=== PATIENT | female | born 1945 | race Caucasian/White ===

== ENCOUNTER → 2016-11-04 16:52 | Outpatient (CLI) | payer MEDICARE, OTHER ==
[2013-01-15 07:53] VITALS: BMI 31.2
[~2016-11-04 16:52] MED LIST: ALTACE5 MG PO; ARMOUR THYROID90 MG PO; ARTHROTEC EC 71 EACH PO; CRESTOR5 MG PO; DHEA25 M1 PO; ESTRADERM 0.10.1 MG TD; FIRST-TESTOSTER60 G1 TP; MIRALAX17 GM PO; PROMETRIUM200 MG PO; VITAMIN D2000 UNIT PO; ZIAC 10/6.25 MG1 TAB PO; ZYLOPRIM100 MG PO; [UNRECOGNIZED DRUG - OTHER]
== END | disposition home or self-care (01) ==
LOC: D.MAMMO 10-19 09:30
DX: Z12.31 Encounter for screening mammogram for malignant neoplasm of breast (principal)

== ENCOUNTER → 2018-05-19 07:35 | Outpatient (CLI) | payer MEDICARE, BC ==
[2013-01-15 07:53] VITALS: BMI 31.2
--- NOTE | ~2018-05-19 | HEMODYNAMI ---
PATIENT:SUNITHA VERGARA MEDICAL RECORD: [id number] : 49 LOCATION:[facility] ADMISSION DATE: 05/19/18 Generatedon:05/19/20188:33 Patient name: SUNITHA VERGARA Patient #: [id number] SSN: DO B: 1945 Date of study: 05/19/2018 Page: Of Hemodynamic Procedure Report Patient Data Patient Demographics Procedure consent was obtained First Name: SUNITHA Gender: Female Last Name: URSULA : 1945 Middle Initial: A Age: 73 year(s) Patient #: [id number] Race: Unknown Additional ID: [id number] Contact details [address]: [address] [place] [address] [address] State: [place] City: [place] Zip code: [address] Past Medical History Allergies: No known allergies Admission Admission Data Admission Date: 05/19/2018 Admission Time: 7:35 Procedure Procedure Types Cath Procedure Peripheral Cath Diagnostic Procedure Miscellaneous Aspiration/Injection (Joint) Procedure Description Procedure Date Procedure Date: 05/19/2018 Procedure Start Time: 8:20 Procedure Staff Name Function Celio Atkinson MD Performing Physician Shad Vieyra RT Monitor Nadine You RN Nurse Procedure Data Cath Procedure Fluoroscopy Diagnostic fluoroscopy Total fluoroscopy Time: 0.7 time: 0.7 min min Diagnostic fluoroscopy Total fluoroscopy dose: 14 dose: 14 mGy mGy Hemodynamics Rest Pre Cath Intra NCS Post Cath Procedure Log Time Note 8:03:46 Shad Vieyra RT (R) (CV) sent for patient. Start room use. 8:04:02 Patient received from Outpatients to IR Alert and oriented. Tansferred to table in Prone position. 8:04:04 Correct patient and procedure confirmed by team. 8:04:06 Signed procedure consent form obtained from patient. 8:04:08 ECG and BP/O2 sat monitors applied to patient. 8:04:09 Full Disclosure recording started 8:04:10 Pre-procedure instructions explained to patient. 8:04:11 Pre-op teaching completed and patient verbalized understanding. 8:04:13 Family in waiting room. 8:04:20 Patient allergic to No known allergies 8:04:25 Is patient on blood thinner?No 8:04:37 Right Lumbar was prepped with betadine and draped in sterile fashion. 8:15:33 Physician arrived 8:15:33 --------ALL STOP TIME OUT------ 8:15:34 Final Timeout: patient, procedure, and site verified with staff and physician. All members of the team are in agreement. 8:15:38 Lumbar site verified by team. 8:15:54 Sedation plan: Local Anesthetic Medication:Lidocaine 8:20:01 Procedure started. 8:20:08 Local anesthetic to Lumbar area with Lidocaine 1% by Celio Atkinson MD.INITIAL ACCESS ONLY 8:20:12 SAFE-T PLUS MYELOGRAM TRAY opened to sterile field. 8:31:59 Procedure ended.(Physican Out) 8:32:26 bandaide applied site stable pt sent home 8:32:46 Fluoroscopy time 00.70 minutes. 8:32:49 Fluoroscopy dose: 14 mGy 8:32:49 Flurop Dose total: 14 Device Usage Item Name Manufacture Quantity Catalog Hospital Part Current Minimal Lot# / Number Charge Number Stock Stock Serial# Code SAFE-T [employer] 1 [id number] PLUS MYELOGRAM TRAY Signature Audit Kincaid Stage Time Signature Unsigned Intra-Procedure 05/19/2018 Shad 8:33:28 AM Jarrell RT (R) (CV) Signatures Monitor : Shad Signature : Jarrell RT Date : Time : [facility] [address] [facility] [place] [address]
== END | disposition home or self-care (01) ==
LOC: D.RAD 07:35
PROVIDERS: ATTEND Orthopaedic Surgery
DX: M53.3 Sacrococcygeal disorders, not elsewhere classified (principal)

== ENCOUNTER 2018-09-13 09:00 | Outpatient (CLI) | payer MEDICARE, BC ==
[2013-01-15 07:53] VITALS: BMI 31.2
== END 2018-09-13 10:00 | disposition home or self-care (01) ==
LOC: D.MAMMO 09:00
PROVIDERS: ATTEND Family Medicine
DX: Z12.31 Encounter for screening mammogram for malignant neoplasm of breast (principal)

== ENCOUNTER 2019-08-27 15:52 | Inpatient (IN) | payer MEDICARE, BC ==
[~2019-08-27] VITALS: Ht 182.9 cm; Wt 99.8 kg
[~2019-08-27 15:52] MED LIST changes: +BISOPROLOL-HCT1 EACH PO; -ZIAC 10/6.25 MG1 TAB PO
[2019-08-29] MEDS ORDERED: FEXMID7.5 MG PO (11:02)
[2019-08-29] MEDS ORDERED: CELEXA20 MG PO (11:02)
[2019-08-29] MEDS ORDERED: HYDROCODON-ACE1 EAC2 PO (11:03)
[2019-08-29] MEDS ORDERED: DONEPEZIL HCL5 MG PO (11:03)
[2019-08-29] MEDS ORDERED: CENTRUM SILVER1 EAC3 PO (11:04)
[2019-08-29] MEDS ORDERED: CALCIUM 250+D T1 TAB PO (11:04)
[2019-08-29] MEDS ORDERED: GLUCOSAMINE HC500 MG PO (11:04)
[2019-08-29] MEDS ORDERED: ALIGN4 MG PO (11:06)
[2019-08-29] MEDS ORDERED: METAMUCIL PO (11:06)
--- NOTE | 2019-08-29 11:34 | NUR ---
HR- 67, POX- 97%, RR- 16, BP RA- 186/84 PT STATED BP WASN'T NORMAL FOR HER BUT HAS BEEN STRESSED WITH WORK AND HAVING PAIN IN KNEE. 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 ENCOURAGED TO CHECK AT HOME TONIGHT AND DAILY TIL DOWN TO NORMAL RANGE FOR HER.
[2019-08-29 12:13] LABS: HEMOGLOBIN 15.2 g/dL (12-16); LYMPHOCYTES 30.6 % (15-50); MCH 31.8 pg (26.0-34.0); MCHC 33.8 g/dL (31.0-37.0); MCV 94.1 fL (80.0-100.0); MEAN PLATELET VOLUME 9.7 fL (7.4-10.4); NEUTROPHILS 60.4 % (40-80); RBC 4.78 10x6/uL (4.00-5.40)
[2019-08-29 12:14] LABS: BILIRUBIN NEGATIVE (NEGATIVE); GLUCOSE NEGATIVE (NEGATIVE); KETONE NEGATIVE (NEGATIVE); NITRITE NEGATIVE (NEGATIVE); PLATELET COUNT 308 10x3/uL (130-400); UROBILINOGEN NORMAL (NORMAL)
[2019-08-29 12:20] LABS: APTT 24.3 SECONDS (22.8-39.4); INR 0.89 (0.85-1.17)
[2019-08-29 12:24] LABS: ANION GAP 9.2 mmol/L (8-16); CALCIUM 9.2 mg/dL (8.5-10.1); CARBON DIOXIDE 33.6 mmol/L (21.0-32.0); CREATININE - SERUM 1.1 mg/dL (0.6-1.3); POTASSIUM - SERUM 3.8 mmol/L (3.5-5.1)
[2019-09-17 09:49] LABS: BASOPHILS 0.5 % (0-2); EOSINOPHILS 2.9 % (0-7); HEMATOCRIT 44.4 % (36.0-48.0); HEMOGLOBIN 14.9 g/dL (12-16); IMMATURE GRANULOCYTES 0.3 % (0-5); MCH 32.4 pg (26.0-34.0); MCHC 33.6 g/dL (31.0-37.0); MCV 96.5 fL (80.0-100.0); MONOCYTES 11.6 % (2-11); NEUTROPHILS 52.7 % (40-80); RDW 12.8 % (11.5-14.5); WBC 6.6 10x3/uL (4.8-10.8)
[2019-09-17 09:50] LABS: PLATELET COUNT 245 10x3/uL (130-400)
[2019-09-17 10:04] LABS: ANION GAP 9.2 mmol/L (8-16); APTT 25.4 SECONDS (22.8-39.4); CALCIUM 9.1 mg/dL (8.5-10.1); INR 0.89 (0.85-1.17); POTASSIUM - SERUM 5.2 mmol/L (3.5-5.1)
[2019-09-17 10:07] LABS: NITRITE NEGATIVE (NEGATIVE)
[2019-09-17 10:08] LABS: BILIRUBIN NEGATIVE (NEGATIVE); GLUCOSE NEGATIVE (NEGATIVE); KETONE NEGATIVE (NEGATIVE); UROBILINOGEN NORMAL (NORMAL)
[2019-09-18] VITALS (10 sets, daily range): BP systolic 101–162; BP diastolic 59–95; BMI 29.9
--- NOTE | 2019-09-18 11:00 | NUR ---
CAUTERY PAD PLACED ON RIGHT FLANK. PLASMA BLADE USED ON SETTING 6/8. AQAUMANTIS USED ON SETTING 170. CAUTERY PAD LOT #[id number] EXP. 09/26/2020.
--- NOTE | 2019-09-18 13:39 | NUR ---
RECEIVED TO ROOM 1211 VIA BED FROM PACU. A/O X3. SOMEWHAT LETHARGIC AT THIS TIME. AT BEDSIDE. DRESSING TO RIGHT KNEE IS DRY AND INTACT. DENIES NEEDS.
--- NOTE | 2019-09-18 15:25 | NUR ---
RESTING QUIETLY WITH EYES CLOSED. AT BEDSIDE. NO NEEDS NOTED. VSS.
--- NOTE | 2019-09-18 16:30 | NUR ---
CONTINUES WITH EYES CLOSED. ROUSES TO VERBAL STIMULATION. DENIES NEEDS. AT BEDSIDE.
--- NOTE | 2019-09-18 17:44 | NUR ---
ATE ONLY A FEW BITES OF SPAGETTI BUT ALL OF THE REST. DENIES NEEDS. CPM PLACED AT 1730. NO CHANGES NOTED.
--- NOTE | 2019-09-18 19:45 | NUR ---
VS TAKEN AND CHARTED. PT IS ON THE CPM MACHINE AT THIS TIME LAYING ON HER BACK. SHE HAS NO C/O OR NEEDS AT THIS TIME. WATER WAS DELIVERED TO THE PT AND HER .
--- NOTE | 2019-09-18 20:30 | NUR ---
PT WAS TAKEN OFF THE CPM MACHINE SHE STILL DOES NOT HAVE ANY PAIN.
--- NOTE | 2019-09-18 21:00 | NUR ---
PT GOT UP TO GO TO THE BR USING A WALKER AND TWO NURSES TO ASSIST. SHE DID VERY WELL GETTING UP. SHE VOIDED QS. SHE GOT DIZZY WHILE ON THE TOILET. SHE STATES SHE NEEDED TO GET BACK IN BED. SHE USED THE WALKER TO GET BACK TO BED WITH TWO ASSIST AND FEELS MUCH BETTER. SCD'S ON NOW. PT IS USING HER IS AND CAN GET THE METER TO 2000. THIS WAS HER FISRT TIME OOOB SINCE HER SURGERY THIS MORNING.
--- NOTE | 2019-09-18 21:15 | NUR ---
ICE PACK TAKEN TO PT FOR HER KNEE.
--- NOTE | 2019-09-18 21:48 | NUR ---
TELEMENTRY PLACED ORDERED 84 SR
--- NOTE | 2019-09-19 | NUR ---
VS TAKEN AND CHARTED. NO C/O AT THIS TIME.
--- NOTE | 2019-09-19 03:12 | NUR ---
PT C/O OF PAIN IN HER RIGHT KNEE AND HEEL. PO PAIN MED, OXY 10, AND VISTERAL GIVEN PO. SHE REQUESTED A COKE AND LIP MOISTURIZER AND BOTH WERE TAKEN TO HER. WE TURNED OFF THE TV AND TURNED OUT THE LIGHTS SO SHE CAN REALLY TRY TO SLEEP. PT GOT UP TO VOID BEFORE SHE ASKED FOR PAIN MEDS. SHE DOES VERY WELL WITH THE WALKER TO AND FROM THE BATHROOM WITH NURSE JUST WALKING BEHIND HER. SHE STATED ONCE SHE WAS ON THE TOILET THAT SHE WAS DIZZY. SHE GOT UP AND AMBULATED WITH WALKER BACK TO BED WITHOUT INCIDENCE.
[2019-09-19 03:40] VITALS: BP 129/58
--- NOTE | 2019-09-19 03:40 | NUR ---
VS TAKEN NO NEEDS OR C/O AT THIS TIME.
[2019-09-19 07:07] LABS: BASOPHILS 0.1 % (0-2); EOSINOPHILS 0 % (0-7); IMMATURE GRANULOCYTES 0.3 % (0-5); LYMPHOCYTES 12.3 % (15-50); MCH 31.1 pg (26.0-34.0); MCHC 32.4 g/dL (31.0-37.0); MCV 95.9 fL (80.0-100.0); MEAN PLATELET VOLUME 10.6 fL (7.4-10.4); MONOCYTES 12.6 % (2-11); NEUTROPHILS 74.7 % (40-80); RDW 12.8 % (11.5-14.5)
[2019-09-19 07:09] LABS: HEMATOCRIT 35.2 % (36.0-48.0); HEMOGLOBIN 11.4 g/dL (12-16); PLATELET COUNT 167 10x3/uL (130-400); RBC 3.67 10x6/uL (4.00-5.40); WBC 11.5 10x3/uL (4.8-10.8)
[2019-09-19 07:27] LABS: ANION GAP 11.4 mmol/L (8-16); CALCIUM 8.2 mg/dL (8.5-10.1); CARBON DIOXIDE 28.7 mmol/L (21.0-32.0); MAGNESIUM - SERUM 1.8 mg/dL (1.8-2.4)
[2019-09-19 07:28] LABS: POTASSIUM - SERUM 4.1 mmol/L (3.5-5.1)
--- NOTE | 2019-09-19 08:18 | NUR ---
PT ALERT X 4. BREATH SOUNDS CLEAR BILAT. IV TO LEFT FOREARM, PATENT, DRESSING CDI. NICHOLE TO RIGHT LEG CDI, CPM REMOVED AT 0745. PT REPORTING PAIN OF 7/10, MEDICATED PER ORDERS, WILL CONTINUE TO MONITOR. AMBULATED TO BATHROOM AND BACK TO BED WITH NO COMPLICATIONS. SCD'S IN USE. BED LOW, CALL LIGHT IN REACH. NO OTHER NEEDS AT THIS TIME.
[2019-09-19 08:44] VITALS: BP 161/67
[2019-09-19 12:23] VITALS: BP 142/63
--- NOTE | 2019-09-19 13:06 | OP ---
PATIENT NAME: SUNITHA VERGARA MEDICAL RECORD: [id number] :49 [facility] DATE:09/18/19 SURGEON: MARLON AGUILAR, DATE OF OPERATION: 09/18/2019 PROCEDURE PERFORMED: Right total knee arthroplasty. PREOPERATIVE DIAGNOSIS: Right knee osteoarthritis. POSTOPERATIVE DIAGNOSIS: Right knee osteoarthritis. INDICATIONS: Ms. Vergara is a 74-year-old female who has had knee pain for quite some time. She has been treated with injections and physical therapy to no avail. She is tired of dealing with pain and wants something done surgically. This is affecting her activities of daily living. She is aware of the risks and benefits of the procedure including infection, bleeding, need for further surgery, implant failure, fracture, blood clots, and even and she signed the consent as well as damage to nerves and vessels in the area. SURGEON: Marlon Aguilar DO ANESTHESIA: Master Ceja, certified surgical child welfare assistant. DESCRIPTION OF PROCEDURE: The patient was taken to the operative suite, laid in supine position, given general anesthetic, and LMA was placed. She was also given a block by anesthesia in preoperative area. The patient was given 2 g of Ancef, 80 mg of gentamicin and no TXA as she had a blood clot history. The right lower extremity was then prepped and draped in sterile fashion. A time-out was performed and everyone was in agreeance with the correct side, site, patient, and procedure. We marked out the incision on the anterior knee, covered in Ioban, and made an incision down through the skin to the capsule with 10 blade scalpel. We used fresh 10 blade. I did a medial parapatellar approach. As soon as I did that, we coagulated the vessels with Aquamantys going through and then everted the patella. Upon doing that, there were 2 large loose bodies that popped out in the anterior knee, round in nature. These were sent to the lab also with the bone that was sent at the end of the case. I then removed a part of the fat pad and milled down the patella for the implant, then entered into the femoral canal after taking out the ACL with a drill. I then cut the distal femur. I then cut the proximal tibia both off guides. I then removed the menisci and cut more proximal tibia to fit the 10 extension block in. I then sized the femur to be a 70. I then used four-in-one cutting block and an yovany wing to make sure there was no notching. I then used the four-in-one cutting block through that to cut the chamfer cuts and the anterior and posterior cuts. This was removed as well as the bone and then the 70 trial was put on, floated in the tibial tray with poly and marked the rotation. I then drilled the patella and lug holes on the femur. I then exposed the tibia and reamed and punched tibia and put extra holes in the tibia for the cement. This was then irrigated out. The cement was mixed, placed on the implant and on the tibia. I then impacted the implant on. The excess cement was then removed. I then impacted again. The excess cement was removed. The femur was then impacted on. A 10 poly was put in between them, brought into extension, and the patella was cleaned out with irrigation and curet and then cement placed in the holes and on the implant and squeezed into place. Excess cement was removed. I then used 10% povidone-iodine and 500 mL of normal saline solution, put it in the knee and let it sit for 3 minutes and irrigated out with a liter of normal OPERATIVE REPORT [id number] SUNITHA VERGARA saline. I then trialed the 10 poly, had some medial laxity and put in a 12 poly, fit very well, ranged extremity well on extension and flexion, had good stability in mid flexion as well and along with an anterior stabilized E poly with 12 and locked it into place. The knee ranged very well with this and then the Jeancarlos and vancomycin and tobramycin powder was placed in the knee. I then closed the capsule with #1 Vicryl pop-offs and [id number]. This was done by myself, Master Ceja and once the capsule was closed, Master Ceja closed the skin with 2-0 Vicryl in interrupted fashion and then ZipLine placed on the knee, dressed with Adaptic, 4 x 4, ABD, Webril, Will wrap, and JOSH hose stocking up to the knee. She was then awakened and taken to recovery in stable condition. ESTIMATED BLOOD LOSS: Approximately 250 mL. COMPLICATIONS: None. NTS:[id number] Voice Confirmation ID: [id number] DOCUMENT ID: [id number] MARLON AGUILAR DO at 1306 CC: [id number] DICTATION DATE: 09/18/19 1230 SHRINK PIT SUPERVISOR: 09/18/19 2208 ADM IN [facility] [address] [place] [id number]
[2019-09-19 14:24] VITALS: Ht 182.9 cm; Wt 99.8 kg
[2019-09-19 15:30] VITALS: BP 125/56
--- NOTE | 2019-09-19 19:15 | NUR ---
REPORT GIVEN BY BENNY CUMMINGS
--- NOTE | 2019-09-19 19:30 | NUR ---
PAIN MEDS TAKEN TO PT. I WROTE ON HER COMMUNICATION BOARD THE TIME FOR HER NEXT PAIN MEDS. SHE ALSO NEEDED HELP TO THE BATHROOM. SHE WAS ASSISTED USING HER WALKER. SHE DOES WILL AMBULATING TO THE BR. SHE WAS TAKEN OFF THE CPM TO GO TO THE BR BUT PUT BACK ON TO FINISH HER TIME. HER IS IN THE ROOM AT THIS TIME.
[2019-09-19 20:00] VITALS: BP 139/61
--- NOTE | 2019-09-19 20:10 | NUR ---
PT OFF THE CPM NOW. IS GOING HOME FOR THE EVENING. PT ASSESSED. SKIN IS WARM AND DRY. HEART SOUNDS REGULAR, LUNGS CLEAR, BS HEARD. PT IS PASSING GAS BUT HAS NOT HAD A BM. HER URINE IS STILL ALITTLE CONCENTRATED. SHE HAS BEEN ENCOURAGED TO DRINK MORE WATER. HER RIGHT KNEE IS STILL WRAPPED IN AN NICHOLE BANDAGE AND I SEE NO DRAINAGE THROUGH THE NICHOLE. HER IV WAS SALINE LOCKED. THE SITE LOOKS GOOD WITH NO REDNESS OR LEAKING. SHE STATES THIS MAKES IT SO MUCH EASIER TO GET UP TO THE BR. SHE IS STILL WEARING HER SCD'S WITHOUT C/O. SHE IS STILL USING HER IS WHEN SHE IS AWAKE 10 TIMES AN HOUR. SHE ASKED ABOUT MOVING FROM SIDE TO SIDE TOLERATED AND TOLD HER IT WAS OK UNLESS SHE FELT PAIN. SHE IS STILL WEARING TELE.
--- NOTE | 2019-09-19 21:00 | NUR ---
CHECKED IN ON PT. SHE IS SLEEPING FOR NOW.
--- NOTE | 2019-09-19 23:20 | NUR ---
PT CALLED FOR HELP UP TO THE BR. THIS WAS DONE WITH NO PROBLEMS. I NOTICED THAT IT WAS TIME FOR HER PAIN MEDS AGAIN.
--- NOTE | 2019-09-19 23:30 | NUR ---
PAIN MEDS GIVEN PO PER ORDER. VS TAKEN FOR MIDNIGHT. HER O2 SATS ARE A LITTLE DECREASED RIGHT AFTER SHE IS WAKED UP. THE LIGHTS HAVE BEEN TURNED OUT AND PT IS GOING TO TRY TO SLEEP. SHE HAS FRESH WATER AT HER BEDSIDE.
[2019-09-20 00:01] VITALS: BP 165/88
--- NOTE | 2019-09-20 00:58 | NUR ---
PT IS RESTING QUIETLY WITH HER EYES CLOSED. RESP. ARE DEEP AND REGULAR.
--- NOTE | 2019-09-20 02:44 | NUR ---
PT IS SLEEPING WELL NOW. O2 VIA NC 2L.
[2019-09-20 04:08] VITALS: BP 135/61
--- NOTE | 2019-09-20 04:09 | NUR ---
VS TAKEN AND RECORDED. PT ASKED IF SHE COULD BE PUT ON THE CPM MACHINE EARLY TODAY. SHE IS NOW ON THE CPM MACHINE. PT ALSO REQUESTED PAIN MEDS. PERCOCET 10 AND VISTARIL WERE GIVEN. PT IS GOING TO TRY TO SLEEP FOR THE REST OF THE NIGHT.
[2019-09-20 06:16] LABS: BASOPHILS 0.1 % (0-2); EOSINOPHILS 0.4 % (0-7); HEMATOCRIT 29.8 % (36.0-48.0); HEMOGLOBIN 9.6 g/dL (12-16); IMMATURE GRANULOCYTES 0.3 % (0-5); LYMPHOCYTES 16.7 % (15-50); MCH 30.9 pg (26.0-34.0); MCHC 32.2 g/dL (31.0-37.0); MCV 95.8 fL (80.0-100.0); MEAN PLATELET VOLUME 10.1 fL (7.4-10.4); MONOCYTES 13.2 % (2-11); NEUTROPHILS 69.3 % (40-80); PLATELET COUNT 198 10x3/uL (130-400); RBC 3.11 10x6/uL (4.00-5.40); RDW 12.6 % (11.5-14.5); WBC 10.4 10x3/uL (4.8-10.8)
[2019-09-20 06:39] LABS: ANION GAP 6.6 mmol/L (8-16); CALCIUM 8.6 mg/dL (8.5-10.1); CARBON DIOXIDE 33.9 mmol/L (21.0-32.0); CREATININE - SERUM 0.9 mg/dL (0.6-1.3); MAGNESIUM - SERUM 1.9 mg/dL (1.8-2.4); POTASSIUM - SERUM 3.5 mmol/L (3.5-5.1)
--- NOTE | 2019-09-20 06:59 | NUR ---
CPM OFF. PT AMBULATED TO BR. BACK IN BED WITH SCD'S HOOKED UP. NO NEW C/0
--- NOTE | 2019-09-20 07:00 | NUR ---
PT IS RESTING IN BED WITH EYES OPEN. RESPIRATIONS ARE EVEN AND UNLABORED. PT IS AAOX 4. DRESSING TO RIGHT KNEE NOTED AND IS CDI. SCDS ON BLE. PT DENIES PRESENCE OF NUMBNESS/TINGLING TO BLE. BILATERAL PEDAL PULSES ARE PALP. PT DENIES PRESENCE OF PAIN/N/V AT THIS TIME. BED IS IN THE LOWEST POSITION. CALL LIGHT AND BEDSIDE TABLE ARE WITHIN REACH. SIDE RAILS X 2. PT DENIES FURTHER NEEDS. WILL CONT TO MONITOR.
[2019-09-20 07:42] VITALS: BP 139/72
[2019-09-20] MEDS ORDERED: VISTARIL50 MG PO (07:47)
[2019-09-20] MEDS ORDERED: KEFLEX500 MG PO (07:47)
[2019-09-20] MEDS ORDERED: ELIQUIS2.5 MG PO (07:47)
[2019-09-20] MEDS ORDERED: PERCOCET 10-321 EAC1 PO (07:47)
[2019-09-20 11:14] VITALS: BP 106/67
--- NOTE | 2019-09-20 13:26 | NUR ---
DRESSING TO RIGHT KNEE CHANGED PER ORDER. PT TOLERATED WELL. BED IS IN THE LOWEST POSITION. CALL LIGHT AND BEDSIDE TABLE ARE WITHIN REACH. SIDE RAILS X 2. PT DENIES FURTHER NEEDS. WILL CONT TO MONITOR.
--- NOTE | 2019-09-20 14:12 | MORECARE ---
CASE MANAGEMENT DISCHARGE SUMMARY PATIENT: SUNITHA VERGARA UNIT: [id number] ADM DATE: 09/18/19 AGE: 74 : 47 SEX: F ROOM/BED: D.1211 AUTHOR: KACEY KEANE PHYSICIAN: REFERRING PHYSICIAN: MARCEL AGUILAR DO DATE OF SERVICE: 09/20/19 Discharge Plan Patient Name: SUNITHA VERGARA Facility: [facility]:[place] : 1945 Planned Disposition: Home Health Service Anticipated Discharge Date: Discharge Date: Expected LOS: Initial Reviewer: [email or web address] Initial Review Date: 09/20/2019 Generated: 09/20/19 3:11 pm External Providers External Provider: [facility] Next Contact Date: Service Request Date: Service Type: Resolution: Reviewer: Comments: Patient Name: SUNITHA VERGARA Page [phone] at 1412 All edits/amendments must be made on the electronic document DICTATION DATE: 09/20/19 1411 EDUCATION DEPARTMENT REGISTRAR: MABEL 09/20/19 1411 RPT#: [id number] [place] DATE: STATUS: ADM IN [facility] [address] [place] [address] END OF REPORT
--- NOTE | 2019-09-20 14:20 | MORECARE ---
CASE MANAGEMENT DISCHARGE SUMMARY PATIENT: SUNITHA VERGARA UNIT: [id number] ADM DATE: 09/18/19 AGE: 74 : 47 SEX: F ROOM/BED: D.1211 AUTHOR: KACEY KEANE PHYSICIAN: REFERRING PHYSICIAN: MARCEL AGUILAR DO DATE OF SERVICE: 09/20/19 Discharge Plan Patient Name: SUNITHA VERGARA Facility: [facility]:[place] : 1945 Planned Disposition: Home Health Service Anticipated Discharge Date: Discharge Date: Expected LOS: Initial Reviewer: [email or web address] Initial Review Date: 09/20/2019 Generated: 09/20/19 3:19 pm Comments DCP- Discharge Planning Updated by [email or web address]: Mandy Reece on 09/20/19 1:[address] Patient Name: SUNITHA VERGARA Admission Status: Elective Accout number: [id number] Admission Date: 09-18-2019 : 1945 Admission Diagnosis: Attending: MARCEL AGUILAR Current LOS: 2 Anticipated DC Date: Planned Disposition: Home Health Service Primary Insurance: MEDICARE A & B Discharge Planning Comments: CM met with patient at bedside after explaining CM role and obtaining verbal consent. CM discussed availability / needs of home health, REHAB and medical equipment. PATIENT STATES HAS ALL EQUIPMENT NEEDED. WOULD LIKE TO USE HH FOR PT. JOSEMANUEL SIGNED FOR [facility] OR ANY THAT WILL ACCEPT. CM TO FOLLOW AND ASSIST NEEDED. REFERRAL SENT TO [facility]. WAITING CALL BACK. Social Work Job Titles: Mandy Reece DCPIA - Discharge Planning Initial Assessment Updated by [email or web address]: Mandy Reece on 09/20/19 2:11 pm * Is the patient Alert and Oriented? Yes * PCP CARDOZO * Pharmacy [facility] * Preadmission Environment Home with Family * ADLs Independent * Other Equipment CPM, WALKER,ICE MACHINE * Community resources currently utilized None * Additional services required to return to the preadmission environment? Yes * Can the patient safely return to the preadmission environment? Yes * Has this patient been hospitalized within the prior 30 days at any hospital? No Coverage Notice Reviewer: [id number] - Mandy Reece Notice Issued Date-Time: 09/20/2019 14:14 Notice Type: Patient Choice Letter Notice Delivered To: Relationship to Patient: Cutter First Name: Delivery Method: - Tiffany Days: Prior Verbal Notification: Recipient Understood Notice: Recipient Signature: Med Rec Note Co-signed by Attending: Coverage Notice Comment: CARE 4 OR ANY Last DP export: 09/20/19 1:12 pm Patient Name: SUNITHA VERGARA Page [phone] at 1420 All edits/amendments must be made on the electronic document DICTATION DATE: 09/20/191418 FITNESS TECHNICIAN: MABEL 09/20/19 141 RPT#: [id number] DC DATE: STATUS: ADM IN [facility] [address] [place] [address] END OF REPORT
--- NOTE | 2019-09-20 15:41 | NUR ---
ALL DISCHARGE INSTRUCTIONS COVERED WITH PT AND PT SPOUSE. PIV TO LEFT FA REMOVED WITH CATHETER TIP INTACT. DRESSING APPLIED. PRINTED RX X 4 GIVEN TO PT. PT DENIES FURTHER QUESTIONS/CONCERNS/NEEDS AT THIS TIME. ALL DISCHARGE PAPERS SIGNED. SOL GUZMÁN ESCORTS PT FROM ROOM VIA WHEELCHAIR. PT THANKS THIS NURSE AND ASSISTANT HEAD CASHIER FOR CARE GIVEN DURING THIS SHIFT. ALL SIGNED DISCHARGE PAPERS PLACED IN PT CHART.
--- NOTE | 2019-09-20 16:08 | MORECARE ---
CASE MANAGEMENT DISCHARGE SUMMARY PATIENT: SUNITHA VERGARA UNIT: [id number] ADM DATE: 09/18/19 AGE: 74 : [birth year] SEX: F ROOM/BED: D.1211 AUTHOR: LAKHWINDER,DOC PHYSICIAN: REFERRING PHYSICIAN: MARCEL AGUILAR DO DATE OF SERVICE: 09/20/19 Discharge Plan Patient Name: SUNITHA VERGARA Facility: [facility]:[place] : 1945 Planned Disposition: Home Health Service Anticipated Discharge Date: Discharge Date: 09/20/2019 Expected LOS: Initial Reviewer: [email or web address] Initial Review Date: 09/20/2019 Generated: 09/20/19 5:08 pm Comments DCP- Discharge Planning Updated by [email or web address]: Mandy Reece on 09/20/19 1:[address] Patient Name: SUNITHA VERGARA Admission Status: Elective Accout number: [id number] Admission Date: 09-18-2019 : 1945 Admission Diagnosis: Attending: MARCEL AGUILAR Current LOS: 2 Anticipated DC Date: Planned Disposition: Home Health Service Primary Insurance: MEDICARE A & B Discharge Planning Comments: CM met with patient at bedside after explaining CM role and obtaining verbal consent. CM discussed availability / needs of home health, REHAB and medical equipment. PATIENT STATES HAS ALL EQUIPMENT NEEDED. WOULD LIKE TO USE HH FOR PT. JOSEMANUEL SIGNED FOR [facility] OR ANY THAT WILL ACCEPT. CM TO FOLLOW AND ASSIST NEEDED. REFERRAL SENT TO [facility]. WAITING CALL BACK. Bottle Tester: Mandy Reece DCPIA - Discharge Planning Initial Assessment Updated by [email or web address]: Mandy Reece on 09/20/19 2:11 pm * Is the patient Alert and Oriented? Yes * PCP CARDOZO * Pharmacy [facility] * Preadmission Environment Home with Family * ADLs Independent * Other Equipment CPM, WALKER,ICE MACHINE * Community resources currently utilized None * Additional services required to return to the preadmission environment? Yes * Can the patient safely return to the preadmission environment? Yes * Has this patient been hospitalized within the prior 30 days at any hospital? No Coverage Notice Reviewer: [id number] - Mandy Reece Notice Issued Date-Time: 09/20/2019 14:14 Notice Type: Patient Choice Letter Notice Delivered To: Relationship to Patient: Food Service Substitute Name: Delivery Method: - Tiffany Days: Prior Verbal Notification: Recipient Understood Notice: Recipient Signature: Med Rec Note Co-signed by Attending: Coverage Notice Comment: CARE 4 OR ANY Last DP export: 09/20/19 1:20 pm Patient Name: SUNITHA VERGARA Page [phone] at 1608 All edits/amendments must be made on the electronic document DICTATION DATE: 09/20/191607 PASTING MACHINE OPERATOR: MABEL 09/20/19 1608 RPT#: [id number] DC DATE:09/20/19 STATUS: DIS IN [facility] [address] [place] [address] END OF REPORT
== END 2019-09-20 15:43 | disposition home health service (06) | DRG 470 ==
LOC: D.SDCHOLD 08-29 10:00 → D.M3 09-18 06:56 → D.SDCHOLD 09-18 06:56 → D.M3 09-18 13:19
PROVIDERS: Family Medicine; ADMIT Orthopaedic Surgery; ATTEND Orthopaedic Surgery
PROC: 0SRC0J9 Replacement of Right Knee Joint with Synthetic Substitute, Cemented, Open Approach (ICD-10-PCS; principal; 2019-09-18 09:00)
DX: M17.11 Unilateral primary osteoarthritis, right knee (principal); I10 Essential (primary) hypertension; E87.5 Hyperkalemia; E78.5 Hyperlipidemia, unspecified; K58.9 Irritable bowel syndrome, unspecified; F32.9 Major depressive disorder, single episode, unspecified; F03.90 Unspecified dementia, unspecified severity, without behavioral disturbance, psychotic disturbance, mood disturbance, and anxiety; E55.9 Vitamin D deficiency, unspecified

== ENCOUNTER → 2019-08-27 18:26 | Outpatient (CLI) | payer MEDICARE, BC ==
[2013-01-15 07:53] VITALS: BMI 31.2
[~2019-08-27 18:26] MED LIST changes: +ALIGN4 MG PO; +CALCIUM 250+D T1 TAB PO; +CELEXA20 MG PO; +CENTRUM SILVER1 EAC3 PO; +DONEPEZIL HCL5 MG PO; +FEXMID7.5 MG PO; +GLUCOSAMINE HC500 MG PO; +HYDROCODON-ACE1 EAC2 PO; +METAMUCIL PO
== END | disposition home or self-care (01) ==
LOC: D.LABREF 18:26
PROVIDERS: ATTEND Orthopaedic Surgery
DX: M17.11 Unilateral primary osteoarthritis, right knee (principal)

== ENCOUNTER → 2020-05-13 18:09 | Outpatient (CLI) | payer MEDICARE, BC ==
[2019-09-19 14:24] VITALS: BMI 29.8
[~2020-05-13 18:09] MED LIST changes: +ELIQUIS2.5 MG PO; +KEFLEX500 MG PO; +PERCOCET 10-321 EAC1 PO; +VISTARIL50 MG PO
[2020-05-13 18:27] LABS: BASOPHILS 0.4 % (0-2); EOSINOPHILS 4.1 % (0-7); HEMATOCRIT 45.2 % (36.0-48.0); HEMOGLOBIN 14.8 g/dL (12-16); IMMATURE GRANULOCYTES 0.2 % (0-5); LYMPHOCYTE ABS# 1.65 10x3/uL (1.18-3.74); LYMPHOCYTES 33.5 % (15-50); MCHC 32.7 g/dL (31.0-37.0); MCV 94.6 fL (80.0-100.0); MEAN PLATELET VOLUME 10.7 fL (7.4-10.4); MONOCYTES 12.6 % (2-11); NEUTROPHIL ABS# 2.43 10x3/uL (1.56-6.13); NEUTROPHILS 49.2 % (40-80); PLATELET COUNT 288 10x3/uL (130-400); RBC 4.78 10x6/uL (4.00-5.40); RDW 13.3 % (11.5-14.5); WBC 4.9 10x3/uL (4.8-10.8)
[2020-05-13 19:40] LABS: ERYTHROCYTE SEDIMENTATION RATE 5 mm/hr (0-30)
== END | disposition home or self-care (01) ==
LOC: D.LABREF 18:09
PROVIDERS: ATTEND Nurse Practitioner Family
DX: M25.561 Pain in right knee (principal)

== ENCOUNTER → 2020-07-11 21:09 | Outpatient (CLI) | payer MEDICARE, BC ==
[2019-09-19 14:24] VITALS: BMI 29.8
== END | disposition home or self-care (01) ==
LOC: D.MAMMO 11:00
PROVIDERS: ATTEND Family Medicine
DX: Z12.31 Encounter for screening mammogram for malignant neoplasm of breast (principal)